=== PATIENT | male | born 1960 | race Hispanic/Latino ===

== ENCOUNTER 2023-12-19 07:05 | Emergency (ER) | payer BC, MEDICARE ==
[~2023-12-19] VITALS: Ht 170.2 cm; Wt 68.5 kg
[~2023-12-19 07:05] MED LIST: LIVER HEALTH PO; PANT40TA54 PO; VITAMIN D3 PO
[2023-12-19] MEDS ORDERED: GUAIFENESIN 600 MG TABLET.ER PO ONE (07:30)
[2023-12-19] MEDS: AZITHROMYCIN 250 MG TABLET PO ONE (07:36)
[2023-12-19] MEDS: SOLU-MEDROL 125MG VIAL IM ONE (07:36)
[2023-12-19] MEDS: BENZONATATE 100 MG CAPSULE PO ONE (07:36)
[2023-12-19 07:45] VITALS: PULSE 78; RESP 20
[2023-12-19] MEDS: ALBUTEROL 0.083% 2.5 MG/3 ML INH IH ONE (07:45)
[2023-12-19 07:46] LABS: RAPID GROUP A STREP negative (NEGATIVE)
[2023-12-19 07:52] LABS: SARS-CoV-2, RNA, NAAT NEGATIVE SARS CoV-2 (NEGATIVE)
[2023-12-19 07:57] LABS: INFLUENZA TYPE A Negative For Type A (NEGATIVE); INFLUENZA TYPE B Negative For Type B (NEGATIVE)
[2023-12-19] MEDS ORDERED: AZIT500T4 PO (08:25)
[2023-12-19] MEDS ORDERED: AUD IH (08:25)
[2023-12-19] MEDS ORDERED: BENZ-39 PO (08:25)
[2023-12-19] MEDS ORDERED: ALBUHFA IH (08:25)
[2023-12-19 08:45] VITALS: BP 110/67; PULSE 88; RESP 20; O2SAT 99
[2024-01-05] MEDS ORDERED: URSO300C4 PO (21:49)
[2024-01-05] MEDS ORDERED: METO5TAB7 PO (21:49)
[2024-01-05] MEDS ORDERED: CARV3.12 PO (21:49)
[2024-01-17] MEDS ORDERED: POTA-202 PO (22:29)
[2024-01-17] MEDS ORDERED: MIDO5TAB4 PO (22:30)
[2024-01-17] MEDS ORDERED: PANT40GR PO (22:31)
[2024-01-17] MEDS ORDERED: SPIR25TA6 PO (22:31)
[2024-01-17] MEDS ORDERED: LEVO-70 PO (22:32)
== END 2023-12-19 08:43 | disposition home or self-care (01) ==
LOC: EDH 07:05
DX: R05.3 Chronic cough (principal); R50.9 Fever, unspecified; Z20.822 Contact with and (suspected) exposure to COVID-19; Z79.899 Other long term (current) drug therapy; Z98.890 Other specified postprocedural states
CPT/HCPCS: 99283; 87635; 87880; 87804 ×2; 96372; 94640; J2919